=== PATIENT | male | born 1995 | race African-American/Black ===

== ENCOUNTER 2017-03-28 17:18 | Emergency (ER) | payer BC, OTHER ==
[2017-03-28 17:48] VITALS: BP 158/75; PULSE 85; TEMP 99; BMI 32.0
--- NOTE | 2017-03-28 17:48 | PDOC ---
Rapid Medical Evaluation Time Seen by Provider: 03/28/17 17:45 Medical Evaluation: 03/28/17 17:45 I have performed a brief in-person evaluation of this patient. The patient presents with a chief complaint of: Pain to left eyelid x 2 days. No pmhx Pertinent physical exam findings:No lid swelling/redness or tenderness, conjunctiva wnl I have ordered the following:nothing The patient will proceed to the ED for further evaluation.
--- NOTE | 2017-03-28 18:56 | PDOC ---
History of Present Illness - General Chief Complaint: Eye Problem Stated Complaint: EYE PAIN Time Seen by Provider: 03/28/17 17:45 History Source: Patient Exam Limitations: No Limitations - History of Present Illness Initial Comments: 03/28/17 18:51 21 year-old male presents to the emergency room with complaints of left retro- orbital pressure intermittently for the past 3 days without visual disturbances complaints of nausea, or dizziness. Patient states has been taking 1 g of Tylenol with moderate effect but only for the pain to return a few hours later. Patient denies recent head injury, history of migraine, fever, or ear discomfort. Timing/Duration: other (3 days) Severity: moderate Associated Symptoms: reports: headaches Past History - Past Medical History Allergies/Adverse Reactions: Allergies Allergy/AdvReac Type Severity Reaction Status Date / Time No Known Allergies Allergy Verified 03/28/17 17:48 Home Medications: Ambulatory Orders Acetaminophen [Tylenol] 325 mg PO ASDIR 03/28/17 COPD: No - Suicide/Smoking/Psychosocial Hx Smoking History: Never smoked Have you smoked in the past 12 months: No Information on smoking cessation initiated: No Hx Alcohol Use: No Drug/Substance Use Hx: No Substance Use Type: None Patient Lives Alone: No Review of Systems - Review of Systems Able to Perform ROS?: No Constitutional: No: Symptoms Reported HEENTM: Yes: Eye Pain Respiratory: No: Symptoms reported ABD/GI: No: Symptoms Reported Musculoskeletal: No: Symptoms Reported Integumentary: No: Symptoms Reported Neurological: Yes: Headache. No: Dizziness *Physical Exam - Vital Signs Last Vital Signs Temp Pulse Resp BP Pulse Ox 99.0 F 85 17 158/75 100 03/28/17 17:46 03/28/17 17:46 03/28/17 17:46 03/28/17 17:46 03/28/17 17:46 - Physical Exam General Appearance: Yes: Nourished, Appropriately Dressed. No: Apparent Distress HEENT: positive: EOMI, YOAN. negative: Pale Conjunctivae Integumentary: positive: Normal Color, Warm, Moist Neurologic: positive: Motor Strength 5/5 (ambulatory) Medical Decision Making - Medical Decision Making 03/28/17 19:17 Patient will left retro-orbital pain for the past 3 days with mild relief after taking 1 g Tylenol. Patient denies history of migraines, head injury, fever or chills. Patient ordered for head CT to rule out other etiologies such as mass. If negative patient will follow up with his PCP. 03/28/17 19:45 CT shows moderate to marked left frontal and left ethmoid sinusitis which is probably at least in part of acute versus subacute. *DC/Admit/Observation/Transfer Diagnosis at time of Disposition: Sinusitis, acute frontal - Discharge Dispostion Disposition: HOME Condition at time of disposition: Good - Referrals Referrals: STAFF,NOT ON [Primary Care Provider] - - Patient Instructions Printed Discharge Instructions: DI for Sinusitis Additional Instructions: May take Tylenol for discomfort at this time I also do recommend taking an antihistamine such as Benadryl 25 mg twice a day or [id number] nasal spray to decrease the congestion and follow up with private care physician. - Post Discharge Activity
== END 2017-03-28 19:52 | disposition home or self-care (01) ==
LOC: JERFT 17:18
DX: J01.10 Acute frontal sinusitis, unspecified (principal)
CPT/HCPCS: 70450-TC; 99281-25